=== PATIENT | male | born 1975 | race Caucasian/White ===

== ENCOUNTER 2018-05-05 11:54 | Emergency (ER) | payer MEDICAID ==
[~2018-05-05] VITALS: Ht 167.6 cm; Wt 100.9 kg
[2018-05-05 11:58] VITALS: Ht 167.6 cm; Wt 100.9 kg
--- NOTE | 2018-05-05 16:21 | ERD ---
ER Documentation Chief Complaint Chief Complaint Complains of palpitations since this am HPI 43-year-old male history of prediabetes and hyperlipidemia ambulatory to the ED complaining of palpitations. Patient reports an episode of unprovoked palpitations while at rest lasting approximately 15 minutes. Denies any accompanying shortness of breath, chest pain, nausea, vomiting or diaphoresis. Admits to binge alcohol consumption on weekends and drank approximately 10 beers earlier that day. Currently asymptomatic. Denies abdominal pain or back pain. No leg pain or swelling. No headache, neck or back pain. No URI symptoms or cough. No fevers or chills. ROS All systems reviewed and are negative except as per history of present illness. Medications Home Meds No Active Prescriptions or Reported Meds Allergies Allergies: Coded Allergies: No Known Allergy (Unverified , 05/05/18) PMhx/Soc Medical and Surgical Hx: pt denies Surgical Hx Hx Cardiac Disorders: Yes (cholesterol) Hx Alcohol Use: Yes (occasionally) Hx Substance Use: No Hx Tobacco Use: Yes (quit 5 years ago) Smoking Status: Former smoker FmHx No coronary artery disease, sudden cardiac or stroke. Physical Exam Vitals Vital Signs Date Temp Pulse Resp B/P (MAP) Pulse Ox O2 O2 Flow FiO2 Time Delivery Rate 05/05/18 98.5 51 20 111/80 100 Room Air 17:47 (90) 05/05/18 100 22 100/66 98 Room Air 16:56 (77) 05/05/18 97.5 60 20 134/61 99 11:58 (85) Physical Exam Const: No acute distress Head: Atraumatic Eyes: Normal Conjunctiva ENT: Normal External Ears, Nose and Mouth. Neck: Full range of motion. No meningismus. Resp: Clear to auscultation bilaterally Cardio: Regular rate and rhythm, no murmurs Abd: Soft, non tender, non distended. Normal bowel sounds Skin: No petechiae or rashes Back: No midline or flank tenderness Ext: No cyanosis, or edema Neur: Awake and alert Psych: Normal Mood and Affect Result Diagram: 05/05/18 1622 05/05/18 1622 Results 24 hrs Laboratory Tests Test 05/05/18 16:22 White Blood Count 7.5 10^3/ul Red Blood Count 4.76 10^6/ul Hemoglobin 15.1 g/dl Hematocrit 45.7 % Mean Corpuscular Volume 96.0 fl Mean Corpuscular Hemoglobin 31.7 pg Mean Corpuscular Hemoglobin Concent 33.0 g/dl Red Cell Distribution Width 12.0 % Platelet Count 284 10^3/UL Mean Platelet Volume 9.5 fl Immature Granulocytes % 0.400 % Neutrophils % 58.0 % Lymphocytes % 27.4 % Monocytes % 7.3 % Eosinophils % 6.5 % Basophils % 0.4 % Nucleated Red Blood Cells % 0.0 /100WBC Immature Granulocytes # 0.030 10^3/ul Neutrophils # 4.4 10^3/ul Lymphocytes # 2.1 10^3/ul Monocytes # 0.6 10^3/ul Eosinophils # 0.5 10^3/ul Basophils # 0.0 10^3/ul Nucleated Red Blood Cells # 0.0 10^3/ul Sodium Level 141 mmol/L Potassium Level 4.2 mmol/L Chloride Level 103 mmol/L Carbon Dioxide Level 29 mmol/L Anion Gap 9 Blood Urea Nitrogen 11 mg/dl Creatinine 0.92 mg/dl Est Glomerular Filtrat Rate mL/min > 60 mL/min Glucose Level 98 mg/dl Calcium Level 9.4 mg/dl Total Bilirubin 0.5 mg/dl Direct Bilirubin 0.00 mg/dl Indirect Bilirubin 0.5 mg/dl Aspartate Amino Transf (AST/SGOT) 24 IU/L Alanine Aminotransferase (ALT/SGPT) 52 IU/L Alkaline Phosphatase 67 IU/L Troponin I < 0.012 ng/ml Total Protein 7.6 g/dl Albumin 4.3 g/dl Globulin 3.30 g/dl Albumin/Globulin Ratio 1.30 Thyroid Stimulating Hormone (TSH) 3.130 MIU/L Procedures/MDM DOCUMENTS REVIEWED: ED nurse, no prior records EKG: Time: 12:12. Sinus bradycardia. Ventricular rate 55. Normal AL and QRS. No ectopy. Right axis deviation. My Interpretation IMAGING: Chest AP portable: Borderline cardiomegaly. Costophrenic angles are clear. No effusions or infiltrates. No mediastinal widening. No abnormalities of the bony thorax. My interpretation [employer]-year-old male history of prediabetes and hyperlipidemia ambulatory to the ED complaining of palpitations. CBC is unremarkable for anemia, thrombocytopenia or leukocytosis. Chemistry reveals no evidence of renal insufficiency or electrolyte abnormalities. LFT's are negative for hyperbilirubinemia or transaminitis. EKG is negative for ischemia or dysrhythmia. No changes of WPW or Brugada. Troponin negative. 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 Paroxysmal dysrhythmia is not ruled out. No hyperthyroidism and TSH is normal. Stable for discharge with precautionary instructions and outpatient follow-up as counseled. Counseled patient regarding diagnostic workup, diagnosis and need for followup. Understands to return to ED if symptoms recur, worsen or any other concerns. Departure Diagnosis: Primary Impression: Palpitations Condition: Stable BEE TALAMANTES MD May 05, 2018 16:21
[2018-05-05 17:47] VITALS: BP 111/80; PULSE 51; RESP 20
== END 2018-05-05 17:56 | disposition home or self-care (01) ==
LOC: E/R 11:54
DX: R00.2 Palpitations (principal); Z87.891 Personal history of nicotine dependence
CPT/HCPCS: 71045; 80053; 84443; 84484; 85025; 93005; Z7502